=== PATIENT | male | born 1990 | race Caucasian/White ===

== ENCOUNTER 2021-06-27 13:16 | Emergency (ER) | payer BC ==
--- NOTE | 2021-06-27 14:00 | EDM.PDOC ---
ED HPI GENERAL MEDICAL PROBLEM - General Chief Complaint: Respiratory Problem Stated Complaint: FEVER,CHILLS,SHORTNESS BREATH Time Seen by Provider: 06/27/21 13:50 Source of Information: Reports: Patient, RN. Denies: Old Records History Limitations: Reports: No Limitations - History of Present Illness INITIAL COMMENTS - FREE TEXT/NARRATIVE: 31 yo male smoker presents with fever, SOB, and malaise. Sx's began this morning. He did take acetaminophen before coming in. Has not had the Covid vaccines. Onset: Today Onset Date: 06/27/21 Duration: Hour(s):, Getting Worse Location: Reports: Chest, Generalized Quality: Reports: Ache Severity: Mild Improves with: Reports: None Worsens with: Reports: Other (? time) Context: Reports: Other (see HPI) Associated Symptoms: Reports: Fever/Chills, Malaise, Shortness of Breath Treatments CUTTER HAND: Reports: Acetaminophen - Related Data Allergies Allergy/AdvReac Type Severity Reaction Status Date / Time No Known Allergies Allergy Verified 06/27/21 13:44 Home Meds: Home Meds NK [No Known Home Meds] 06/27/21 [History] Past Medical History - Past Health History Medical/Surgical History: Denies Medical/Surgical History Social & Family History - Tobacco Use Tobacco Use Status *Q: Current Every Day Tobacco User Years of Tobacco use: 10 Packs/Tins Daily: 1 - Caffeine Use Caffeine Use: Reports: Soda - Recreational Drug Use Recreational Drug Use: No ED ROS GENERAL - Review of Systems Review Of Systems: See Below Constitutional: Reports: Fever, Chills, Malaise HEENT: Reports: No Symptoms Respiratory: Reports: Shortness of Breath Cardiovascular: Reports: No Symptoms GI/Abdominal: Reports: No Symptoms : Reports: No Symptoms Musculoskeletal: Reports: No Symptoms Skin: Reports: No Symptoms ED EXAM, GENERAL - Physical Exam Exam: See Below Exam Limited By: No Limitations General Appearance: Alert, WD/WN, Mild Distress Eye Exam: Bilateral Eye: Normal Inspection Ears: Normal External Exam, Normal Canal, Hearing Grossly Normal, Normal TMs Ear Exam: Bilateral Ear: Auricle Normal, Canal Normal, TM normal Nose: Normal Inspection, No Blood Throat/Mouth: Normal Inspection, Normal Lips, Normal Oropharynx, Normal Voice, No Airway Compromise Head: Atraumatic, Normocephalic Neck: Normal Inspection Respiratory/Chest: No Respiratory Distress, Lungs Clear, Normal Breath Sounds, No Accessory Muscle Use Cardiovascular: Regular Rate, Rhythm, No Edema GI/Abdominal: Normal Bowel Sounds, Soft, Non-Tender, No Distention Back Exam: Normal Inspection. No: CVA Tenderness (R), CVA Tenderness (L) Extremities: Normal Inspection, Normal Range of Motion, Non-Tender, No Pedal Edema Neurological: Alert, Oriented, CN II-XII Intact, Normal Cognition, No Motor/Sensory Deficits Psychiatric: Normal Affect, Normal Mood Skin Exam: Warm, Dry, Intact, Normal Color, No Rash Course - Vital Signs Last Recorded V/S: Last Vital Signs Temp 36.7 C 06/27/21 13:37 Pulse 94 06/27/21 16:49 Resp 24 H 06/27/21 16:49 BP 114/74 06/27/21 16:49 Pulse Ox 97 06/27/21 16:49 Orthostatic Blood Pressure [ 115/68 Standing] Orthostatic Blood Pressure [ 118/72 Sitting] Orthostatic Blood Pressure [ 111/72 Supine] - Orders/Labs/Meds Orders: Active Orders 24 hr Category Date Time Status Orthostatic Vital Signs [RC] ASDIRECTED Care 06/27/21 13:53 Active CULTURE BLOOD [BC] Stat Lab 06/27/21 15:08 Received CULTURE BLOOD [BC] Stat Lab 06/27/21 15:18 Received UA W/MICROSCOPIC [URIN] Stat Lab 06/27/21 17:17 Ordered Lactated Ringers [Ringers, Lactated] 1,000 ml Med 06/27/21 17:14 Active IV BOLUS Sodium Chloride 0.9% [Saline Flush] Med 06/27/21 15:03 Active 10 ml FLUSH ASDIRECTED PRN cefTRIAXone [Rocephin] 1 gm Med 06/27/21 17:18 Ordered Sodium Chloride 0.9% [Normal Saline] 50 ml IV ONETIME Saline Lock Insert [OM.PC] Routine Oth 06/27/21 15:03 Ordered Medication Orders Lactated Ringer's (Ringers, Lactated) 1,000 mls @ 1,000 mls/hr IV BOLUS ONE Stop: 06/27/21 18:13 Ceftriaxone Sodium 1 gm/ (Sodium Chloride) 50 mls @ 100 mls/hr IV ONETIME ONE Stop: 06/27/21 17:47 Sodium Chloride (Sodium Chloride 0.9% 10 Ml Syringe) 10 ml FLUSH ASDIRECTED PRN PRN Reason: Keep Vein Open Last Admin: 06/27/21 15:13 Dose: 10 ml Documented by: RAHUL Labs: Laboratory Tests 06/27/21 06/27/21 06/27/21 Range/Units 14:08 14:58 15:02 WBC 16.3 H (4.5-11.0) K/uL RBC 4.85 (4.30-5.90) M/uL Hgb 15.8 H (12.0-15.0) g/dL Hct 45.3 (40.0-54.0) % MCV 93 (80-98) fL MCH 33 H (27-31) pg MCHC 35 (32-36) % Plt Count 154 (150-400) K/uL Neut % (Auto) 82.4 H (36-66) % Lymph % (Auto) 6.8 L (24-44) % Hendricks % (Auto) 10.5 H (2-6) % Eos % (Auto) 0.1 L (2-4) % Baso % (Auto) 0.2 (0-1) % Sodium 138 L (140-148) mmol/L Potassium 3.8 (3.6-5.2) mmol/L Chloride 100 (100-108) mmol/L Carbon Dioxide 26 (21-32) mmol/L Anion Gap 15.8 H (5.0-14.0) mmol/L BUN 13 (7-18) mg/dL Creatinine 1.0 (0.8-1.3) mg/dL Est Cr Clr Drug Dosing 93.55 mL/min Estimated GFR (MDRD) > 60 (>60) Glucose 101 (74-106) mg/dL Lactic Acid (0.4-2.0) mmol/L Calcium 9.0 (8.5-10.1) mg/dL SARS CoV-2 RNA Rapid CLAIRE Negative 06/27/21 Range/Units 15:03 WBC (4.5-11.0) K/uL RBC (4.30-5.90) M/uL Hgb (12.0-15.0) g/dL Hct (40.0-54.0) % MCV (80-98) fL MCH (27-31) pg MCHC (32-36) % Plt Count (150-400) K/uL Neut % (Auto) (36-66) % Lymph % (Auto) (24-44) % Hendricks % (Auto) (2-6) % Eos % (Auto) (2-4) % Baso % (Auto) (0-1) % Sodium (140-148) mmol/L Potassium (3.6-5.2) mmol/L Chloride (100-108) mmol/L Carbon Dioxide (21-32) mmol/L Anion Gap (5.0-14.0) mmol/L BUN (7-18) mg/dL Creatinine (0.8-1.3) mg/dL Est Cr Clr Drug Dosing mL/min Estimated GFR (MDRD) (>60) Glucose (74-106) mg/dL Lactic Acid 1.7 (0.4-2.0) mmol/L Calcium (8.5-10.1) mg/dL SARS CoV-2 RNA Rapid CLAIRE Meds: Medications Generic Name Dose Route Start Last Admin Trade Name Chris PRN Reason Stop Dose Admin Lactated Ringer's 1,000 mls @ 1,000 mls/hr 06/27/21 17:14 Ringers, Lactated IV 06/27/21 18:13 BOLUS ONE Ceftriaxone Sodium 1 gm/ 50 mls @ 100 mls/hr 06/27/21 17:18 Sodium Chloride IV 06/27/21 17:47 ONETIME ONE Sodium Chloride 10 ml 06/27/21 15:03 06/27/21 15:13 Sodium Chloride 0.9% 10 Ml Syringe FLUSH 10 ml ASDIRECTED PRN Administration Keep Vein Open Discontinued Medications Generic Name Dose Route Start Last Admin Trade Name Chris PRN Reason Stop Dose Admin Acetaminophen 1,000 mg 06/27/21 15:06 06/27/21 15:13 Acetaminophen 500 Mg Tab PO 06/27/21 15:07 1,000 mg ONETIME ONE Administration Lactated Ringer's 1,000 mls @ 1,000 mls/hr 06/27/21 15:19 06/27/21 15:25 Ringers, Lactated IV 06/27/21 16:18 1,000 mls/hr BOLUS ONE Administration - Radiology Interpretation Free Text/Narrative:: CXR-neg - Re-Assessments/Exams Free Text/Narrative Re-Assessment/Exam: 06/27/21 17:19 No clear source for his infection identified. Is feeling much better after IV fluids. Will give Rocephin after the LR is done and send home with a recheck tomorrow. Departure - Departure Time of Disposition: 18:30 Disposition: Home, Self-Care 01 Condition: Fair Clinical Impression: Orthostatic hypotension Fever Qualifiers: Fever type: unspecified Qualified Code(s): R50.9 - Fever, unspecified Elevated WBC count Qualifiers: Leukocytosis type: bandemia Qualified Code(s): D72.825 - Bandemia - Discharge Information *PRESCRIPTION DRUG MONITORING PROGRAM REVIEWED*: Not Applicable *COPY OF PRESCRIPTION DRUG MONITORING REPORT IN PATIENT KERWIN: Not Applicable Instructions: Fever, Adult, [id number] Referrals: PCP,None [Primary Care Provider] - Forms: ED Department Discharge, ED Return to Work/School Form Additional Instructions: Take acetaminophen 1000 mg every 6 hrs for fever control. Drink ample fluids and get plenty of rest. Recheck tomorrow afternoon either in the clinic or the ER to reassess your condition and to follow up on your blood cultures. Return if a lot worse in the interim. Off work through the weekend. Sepsis Event Note (ED) - Evaluation Sepsis Screening Result: Possible Sepsis Risk - Focused Exam Vital Signs: Vital Signs Temp Pulse Resp BP Pulse Ox 06/27/21 16:49 94 24 H 114/74 97 06/27/21 13:37 36.7 C 117 H 18 104/72 98 - My Orders Last 24 Hours: My Active Orders 06/27/21 13:53 Orthostatic Vital Signs [RC] ASDIRECTED 06/27/21 15:03 Sodium Chloride 0.9% [Saline Flush] 10 ml FLUSH ASDIRECTED PRN Saline Lock Insert [OM.PC] Routine 06/27/21 15:08 CULTURE BLOOD [BC] Stat 06/27/21 15:18 CULTURE BLOOD [BC] Stat 06/27/21 17:14 Lactated Ringers [Ringers, Lactated] 1,000 ml IV BOLUS 06/27/21 17:17 UA W/MICROSCOPIC [URIN] Stat 06/27/21 17:18 cefTRIAXone [Rocephin] 1 gm Sodium Chloride 0.9% [Normal Saline] 50 ml IV ONETIME - Assessment/Plan Last 24 Hours: My Active Orders 06/27/21 13:53 Orthostatic Vital Signs [RC] ASDIRECTED 06/27/21 15:03 Sodium Chloride 0.9% [Saline Flush] 10 ml FLUSH ASDIRECTED PRN Saline Lock Insert [OM.PC] Routine 06/27/21 15:08 CULTURE BLOOD [BC] Stat 06/27/21 15:18 CULTURE BLOOD [BC] Stat 06/27/21 17:14 Lactated Ringers [Ringers, Lactated] 1,000 ml IV BOLUS 06/27/21 17:17 UA W/MICROSCOPIC [URIN] Stat 06/27/21 17:18 cefTRIAXone [Rocephin] 1 gm Sodium Chloride 0.9% [Normal Saline] 50 ml IV ONETIME
[2021-06-27] MEDS ORDERED: Sodium Chloride 0.9% 10 ML Syringe FLUSH PRN (15:03)
[2021-06-27] MEDS ORDERED: Acetaminophen 500 MG Tab PO ONE (15:06)
[2021-06-27] MEDS ORDERED: Lactated Ringers 1,000 ML IV ONE ×2 (15:19→17:14)
--- NOTE | 2021-06-27 17:07 | CRLCR ---
For Patients: As a result of the Cures Act, medical imaging exams and procedure reports are released immediately into your electronic medical record. You may view this report before your referring provider. If you have questions, please contact your health care provider. INDICATION: Shortness of breath, fever TECHNIQUE: Chest 2 views. COMPARISON: None FINDINGS: Cardiovascular and mediastinum: Heart size and vasculature are normal in caliber and appearance. Mediastinum is within normal limits. Lungs and pleural spaces: Lungs are hyper expanded. No sign of infiltrate or mass. No sign of pleural effusion. No pneumothorax. Bones and soft tissues: No significant findings. IMPRESSION: No sign of acute disease. Dictated by Becca Santiago MD @ 06/27/2021 5:05:[address] Becca Santiago @ Jun 27 2021 5:05PM
[2021-06-27] MEDS ORDERED: cefTRIAXone 1 GM in Sodium Chloride 0.9% 50 ML IV ONE (17:18)
== END 2021-06-27 19:18 | disposition home or self-care (01) ==
LOC: JP.ED 13:16
DX: D72.825 Bandemia (principal); I95.1 Orthostatic hypotension; Z72.0 Tobacco use; Z20.822 Contact with and (suspected) exposure to COVID-19
CPT/HCPCS: 36415; 71046; 80048; 81001; 83605; 85025; 87040; 87635; 96365; 99285; A9270; J0696; J7120; U0002

== ENCOUNTER 2021-06-30 10:28 | Emergency (ER) | payer BC ==
[2021-06-30] MEDS ORDERED: Sodium Chloride 0.9% 10 ML Syringe FLUSH PRN (11:12)
--- NOTE | 2021-06-30 11:18 | EDM.PDOC ---
ED HPI GENERAL MEDICAL PROBLEM - General Chief Complaint: General Stated Complaint: HERE ON WEDNESDAY NOT FEELING BETTER Time Seen by Provider: 06/30/21 11:05 Source of Information: Reports: Patient, Old Records History Limitations: Reports: No Limitations - History of Present Illness INITIAL COMMENTS - FREE TEXT/NARRATIVE: 31 yo male was seen here last Wednesday for dehydration, fever, and an elevated WBC without a definitive dx. He received 2 liters of IV fluids and a gram of IV Rocephin and was asked to be rechecked the next day to follow up on his outstanding blood cx's. He felt a little better the next day so did not get re- seen and now comes back saying he got sicker again on Wednesday. He does not have a primary care provider. He reports a pHx of IBS that is worse lately than normal. He says his urine is dark even though he is trying to drink a lot. He has been having intermittent fevers, night sweats, and feels a little SOB. No rash, he has clear rhinorrhea, and a mild sore throat. Some yellow sputum production. Sleeping a lot. Onset: Sudden Onset Date: 06/27/21 Duration: Day(s):, Waxing/Waning Location: Reports: Generalized Quality: Reports: Ache Severity: Moderate Improves with: Reports: Medication Worsens with: Reports: Other (unsure, gets diarrhea whenever he eats) Context: Reports: Other (see HPI) Associated Symptoms: Reports: Diaphoresis (night sweats), Fever/Chills, Malaise, Shortness of Breath. Denies: Chest Pain, Cough, Rash Treatments REMOTE SENSING ADVISOR: Reports: Other (see below) (none) - Related Data Allergies Allergy/AdvReac Type Severity Reaction Status Date / Time No Known Allergies Allergy Verified 06/30/21 10:47 Home Meds: Home Meds NK [No Known Home Meds] 06/27/21 [History] Past Medical History - Past Health History Medical/Surgical History: Denies Medical/Surgical History Social & Family History - Tobacco Use Tobacco Use Status *Q: Light Tobacco User Years of Tobacco use: 10 Packs/Tins Daily: 0.5 - Caffeine Use Caffeine Use: Reports: Energy Drinks - Recreational Drug Use Recreational Drug Use: No ED ROS GENERAL - Review of Systems Review Of Systems: See Below Constitutional: Reports: Fever, Chills, Malaise, Decreased Appetite HEENT: Reports: Rhinitis, Throat Pain (mild). Denies: Ear Pain Respiratory: Reports: Shortness of Breath (mild), Cough (not severe), Sputum (yellow). Denies: Wheezing, Pleuritic Chest Pain, Hemoptysis Cardiovascular: Reports: Lightheadedness Endocrine: Reports: No Symptoms GI/Abdominal: Reports: Diarrhea. Denies: Black Stool, Bloody Stool, Constipation, Distension, Hematemesis, Hematochezia, Melena, Nausea, Vomiting : Reports: Other (dark yellow) Musculoskeletal: Reports: No Symptoms Skin: Reports: No Symptoms ED EXAM, GENERAL - Physical Exam Exam: See Below Exam Limited By: No Limitations General Appearance: Alert, WD/WN, No Apparent Distress, Other (appears fatigued) Eye Exam: Bilateral Eye: Normal Inspection Ears: Normal External Exam, Normal Canal, Hearing Grossly Normal, Normal TMs Ear Exam: Bilateral Ear: Auricle Normal, Canal Normal, TM normal Nose: Clear Rhinorrhea Throat/Mouth: Normal Inspection, Normal Lips, Normal Oropharynx, No Airway Compromise Head: Atraumatic, Normocephalic Neck: Normal Inspection Respiratory/Chest: No Respiratory Distress, Lungs Clear, Normal Breath Sounds, No Accessory Muscle Use Cardiovascular: Regular Rate, Rhythm, No Edema, Tachycardia GI/Abdominal: Normal Bowel Sounds, Soft, Non-Tender, No Distention. No: Tender Back Exam: Normal Inspection. No: CVA Tenderness (R), CVA Tenderness (L) Extremities: Normal Inspection Neurological: Alert, Oriented, CN II-XII Intact, Normal Cognition, No Motor/Sensory Deficits Psychiatric: Normal Affect, Normal Mood Skin Exam: Warm, Dry, Intact, Normal Color, No Rash Course - Vital Signs Last Recorded V/S: Last Vital Signs Temp 36.8 C 06/30/21 11:38 Pulse 76 06/30/21 12:11 Resp 14 06/30/21 12:11 BP 121/70 06/30/21 12:11 Pulse Ox 98 06/30/21 12:11 Orthostatic Blood Pressure [ 134/90 Standing] Orthostatic Blood Pressure [ 128/88 Sitting] Orthostatic Blood Pressure [ 130/83 Supine] - Orders/Labs/Meds Orders: Active Orders 24 hr Category Date Time Status Orthostatic Vital Signs [RC] ASDIRECTED Care 06/30/21 11:11 Active CDiff [CLOS DIFFICILE PCR W/REFLEX] [RM] Stat Lab 06/30/21 11:10 Ordered Dextrose 5%-0.9% NaCl with KCl [D5 NS with 20 mEq KCl] Med 06/30/21 12:00 Active 1,000 ml IV ASDIRECTED Sodium Chloride 0.9% [Saline Flush] Med 06/30/21 11:12 Active 10 ml FLUSH ASDIRECTED PRN Saline Lock Insert [OM.PC] Routine Oth 06/30/21 11:12 Ordered Medication Orders Potassium Chloride/Dextrose/Sod Cl (D5 Ns With 20 Meq Kcl) 1,000 mls @ 1,000 mls/hr IV ASDIRECTED YONI Last Admin: 06/30/21 12:10 Dose: 1,000 mls/hr Documented by: GRETCHEN Sodium Chloride (Sodium Chloride 0.9% 10 Ml Syringe) 10 ml FLUSH ASDIRECTED PRN PRN Reason: Keep Vein Open Last Admin: 06/30/21 11:21 Dose: 10 ml Documented by: CORY Labs: Laboratory Tests 06/30/21 06/30/21 06/30/21 Range/Units 11:20 11:20 11:20 WBC 7.6 (4.5-11.0) K/uL RBC 4.59 (4.30-5.90) M/uL Hgb 14.9 (12.0-15.0) g/dL Hct 43.3 (40.0-54.0) % MCV 94 (80-98) fL MCH 33 H (27-31) pg MCHC 34 (32-36) % Plt Count 174 (150-400) K/uL Sodium 145 (140-148) mmol/L Potassium 3.4 L (3.6-5.2) mmol/L Chloride 104 (100-108) mmol/L Carbon Dioxide 29 (21-32) mmol/L Anion Gap 15.4 H (5.0-14.0) mmol/L BUN 8 (7-18) mg/dL Creatinine 0.9 (0.8-1.3) mg/dL Est Cr Clr Drug Dosing 107.28 mL/min Estimated GFR (MDRD) > 60 (>60) Glucose 70 L (74-106) mg/dL Calcium 9.0 (8.5-10.1) mg/dL Urine Color Yellow (YELLOW) Urine Appearance Clear (CLEAR) Urine pH 7.0 (5.0-8.0) Ur Specific Sebastian 1.025 (1.008-1.030) Urine Protein Negative (NEGATIVE) mg/dL Urine Glucose (UA) Negative (NEGATIVE) mg/dL Urine Ketones Negative (NEGATIVE) mg/dL Urine Occult Blood Negative (NEGATIVE) Urine Nitrite Negative (NEGATIVE) Urine Bilirubin Negative (NEGATIVE) Urine Urobilinogen 0.2 (0.2-1.0) EU/dL Ur Leukocyte Esterase Negative (NEGATIVE) Urine RBC Not seen (0-5) Urine WBC Not seen (0-5) Ur Epithelial Cells Rare Amorphous Sediment Rare Urine Bacteria Rare Urine Mucus Rare Monoscreen (NEGATIVE) SARS CoV-2 RNA Rapid CLAIRE 06/30/21 06/30/21 Range/Units 11:20 11:54 WBC (4.5-11.0) K/uL RBC (4.30-5.90) M/uL Hgb (12.0-15.0) g/dL Hct (40.0-54.0) % MCV (80-98) fL MCH (27-31) pg MCHC (32-36) % Plt Count (150-400) K/uL Sodium (140-148) mmol/L Potassium (3.6-5.2) mmol/L Chloride (100-108) mmol/L Carbon Dioxide (21-32) mmol/L Anion Gap (5.0-14.0) mmol/L BUN (7-18) mg/dL Creatinine (0.8-1.3) mg/dL Est Cr Clr Drug Dosing mL/min Estimated GFR (MDRD) (>60) Glucose (74-106) mg/dL Calcium (8.5-10.1) mg/dL Urine Color (YELLOW) Urine Appearance (CLEAR) Urine pH (5.0-8.0) Ur Specific Sebastian (1.008-1.030) Urine Protein (NEGATIVE) mg/dL Urine Glucose (UA) (NEGATIVE) mg/dL Urine Ketones (NEGATIVE) mg/dL Urine Occult Blood (NEGATIVE) Urine Nitrite (NEGATIVE) Urine Bilirubin (NEGATIVE) Urine Urobilinogen (0.2-1.0) EU/dL Ur Leukocyte Esterase (NEGATIVE) Urine RBC (0-5) Urine WBC (0-5) Ur Epithelial Cells Amorphous Sediment Urine Bacteria Urine Mucus Monoscreen Negative (NEGATIVE) SARS CoV-2 RNA Rapid CLAIRE Negative Meds: Medications Generic Name Dose Route Start Last Admin Trade Name Freq PRN Reason Stop Dose Admin Potassium Chloride/Dextrose/Sod Cl 1,000 mls @ 1,000 mls/hr 06/30/21 12:00 06/30/21 12:10 D5 Ns With 20 Meq Kcl IV 1,000 mls/hr ASDIRECTED YONI Administration Sodium Chloride 10 ml 06/30/21 11:12 06/30/21 11:21 Sodium Chloride 0.9% 10 Ml Syringe FLUSH 10 ml ASDIRECTED PRN Administration Keep Vein Open - Re-Assessments/Exams Free Text/Narrative Re-Assessment/Exam: 06/30/21 13:12 Feeling better after a liter of fluids. Departure - Departure Time of Disposition: 13:20 Disposition: Home, Self-Care 01 Condition: Fair Clinical Impression: Viral syndrome - Discharge Information *PRESCRIPTION DRUG MONITORING PROGRAM REVIEWED*: Not Applicable *COPY OF PRESCRIPTION DRUG MONITORING REPORT IN PATIENT KERWIN: Not Applicable Referrals: PCP,None [Primary Care Provider] - Forms: ED Department Discharge Additional Instructions: Get lots of rest. Drink enough fluids so your urine is light yellow in color. Acetaminophen 1000 mg every 6 hrs. F/U for recheck in the clinic on Wednesday, return here if worse in the interim. Eat more bananas as these are very digestible, rich in the potassium that you need, and provider some sugar for your system. Also, they shouldn't make your diarrhea worse. Yogurt should be he lpful as well. Sepsis Event Note (ED) - Focused Exam Vital Signs: Vital Signs Temp Pulse Resp BP Pulse Ox 06/30/21 12:11 76 14 121/70 98 06/30/21 11:38 36.8 C 101 H 18 139/88 100 06/30/21 10:57 36.8 C 101 H 18 139/88 100 - My Orders Last 24 Hours: My Active Orders 06/30/21 11:10 CDiff [CLOS DIFFICILE PCR W/REFLEX] [RM] Stat 06/30/21 11:11 Orthostatic Vital Signs [RC] ASDIRECTED 06/30/21 11:12 Sodium Chloride 0.9% [Saline Flush] 10 ml FLUSH ASDIRECTED PRN Saline Lock Insert [OM.PC] Routine 06/30/21 12:00 Dextrose 5%-0.9% NaCl with KCl [D5 NS with 20 mEq KCl] 1,000 ml IV ASDIRECTED - Assessment/Plan Last 24 Hours: My Active Orders 06/30/21 11:10 CDiff [CLOS DIFFICILE PCR W/REFLEX] [RM] Stat 06/30/21 11:11 Orthostatic Vital Signs [RC] ASDIRECTED 06/30/21 11:12 Sodium Chloride 0.9% [Saline Flush] 10 ml FLUSH ASDIRECTED PRN Saline Lock Insert [OM.PC] Routine 06/30/21 12:00 Dextrose 5%-0.9% NaCl with KCl [D5 NS with 20 mEq KCl] 1,000 ml IV ASDIRECTED
[2021-06-30] MEDS ORDERED: Dextrose 5%-0.9% NaCl with KCl 1,000 ML IV SCH (12:00)
== END 2021-06-30 13:36 | disposition home or self-care (01) ==
LOC: JP.ED 10:28
DX: B34.9 Viral infection, unspecified (principal); Z72.0 Tobacco use; Z20.822 Contact with and (suspected) exposure to COVID-19
CPT/HCPCS: 36415; 80048; 81001; 85027; 86308; 87635; 99284; J3480; U0002

== ENCOUNTER 2022-09-30 11:45 | Emergency (ER) | payer BC ==
[2022-09-30] MEDS ORDERED: Ketorolac 30 MG/ML SDV IM ONE (12:09)
== END 2022-09-30 12:41 | disposition home or self-care (01) ==
LOC: JP.ED 11:45
DX: M54.50 Low back pain, unspecified (principal); F17.210 Nicotine dependence, cigarettes, uncomplicated
CPT/HCPCS: 96372; 99283; J1885